=== PATIENT | male | born 1975 | race Caucasian/White ===

== ENCOUNTER 2016-12-21 09:04 | Day surgery (SDC) | payer OTHER ==
[~2016-12-21] VITALS: Ht 180.3 cm; Wt 90.7 kg
[~2016-12-21 09:04] MED LIST: DAILY MULTIPLE1 EACH PO; PROAIR HFA8.5 GM IH
[2016-12-21 09:49] VITALS: BP 131/78
[2016-12-21 10:03] LABS: INTER. NORMALIZED RATIO 1.1; PROTHROMBIN TIME 10.7 (9.2-11.2)
[2016-12-21] MEDS ORDERED: HYDROCODON-ACE1 EAC7 PO (13:13)
[2016-12-21] MEDS ORDERED: COLACE100 MG PO (13:13)
[2016-12-21 13:30] VITALS: BP 120/70
[2016-12-21 14:28] VITALS: BP 120/68
[2016-12-22 15:13] LABS: Flow Number of Markers 22 (()); Flow Spec Viability 79 % (()); Flow Specimen Type LYMPH NODE (())
== END 2016-12-21 14:28 | disposition home or self-care (01) ==
LOC: SDC 09:04
PROVIDERS: Thoracic Surgery (Cardiothoracic Vascular Surgery)
PROC: 07B74ZX Excision of Thorax Lymphatic, Percutaneous Endoscopic Approach, Diagnostic (ICD-10-PCS; principal; 2016-12-21)
DX: R59.1 Generalized enlarged lymph nodes (principal); D86.9 Sarcoidosis, unspecified; R53.83 Other fatigue; Z80.1 Family history of malignant neoplasm of trachea, bronchus and lung; Z80.0 Family history of malignant neoplasm of digestive organs; Z83.49 Family history of other endocrine, nutritional and metabolic diseases; Z82.49 Family history of ischemic heart disease and other diseases of the circulatory system
CPT/HCPCS: 85610; 86850; 86900; 86901; 88184 90; 88185 90; 88189 90; 88305; 88312; J0690; J3010

== ENCOUNTER → 2017-01-03 | Outpatient (CLI) | payer OTHER ==
[~2017-01-03] MED LIST changes: +COLACE100 MG PO; +HYDROCODON-ACE1 EAC7 PO
== END | disposition home or self-care (01) ==
LOC: RES 08:43
DX: R05 Cough (principal)
CPT/HCPCS: 94070